=== PATIENT | male | born 1935 | race Caucasian/White ===

== ENCOUNTER → 2016-09-16 | Outpatient (REF) | LOC: ZLAB.WCH 18:05 | DX: Z01.89 Encounter for other specified special examinations (principal) ==

== ENCOUNTER → 2016-11-11 | Outpatient (REF) | LOC: ZCOL.LAB 08:38 | DX: Z02.89 Encounter for other administrative examinations (principal) ==

== ENCOUNTER → 2017-04-28 | Outpatient (REF) ==
[2017-04-28 09:26] LABS: THYROID STIMULATING HORMONE 3.05 uIU/mL (0.465-4.680)
== END ==
LOC: ZLAB.WCH 08:38
PROVIDERS: Family Medicine
DX: Z01.89 Encounter for other specified special examinations (principal)

== ENCOUNTER 2021-05-27 08:30 | Emergency (ER) | payer MEDICARE ==
[~2021-05-27] VITALS: Ht 182.9 cm; Wt 86.4 kg
[2021-05-27 11:13] VITALS: BP 147/82; PULSE 99; TEMP 99
== END 2021-05-27 11:13 | disposition home or self-care (01) ==
LOC: COL.ER 08:30
DX: M25.552 Pain in left hip (principal)
CPT/HCPCS: J1885